=== PATIENT | female | born 1990 | race Two or more races ===

== ENCOUNTER 2017-05-29 15:50 | Emergency (ER) | payer BC ==
[~2017-05-29] VITALS: Ht 167.6 cm; Wt 74.1 kg
[~2017-05-29 15:50] MED LIST: Dilaudid PO; FLEXERIL10 MG PO; Feosol PO; Motrin PO; NAPROSYN500 MG PO; NOHOMEMEDS; NORCO 5/3251 TABLET PO; PRENATAL1 EACH PO; TORADOL10 MG PO; VALIUM5 MG PO
[2017-05-29 16:25] LABS: HEMATOCRIT 36.7 % (36.0-46.0); MCH 26.9 PG (29.0-34.0); MCHC 31.6 G/DL (30.0-36.0); MEAN PLAT.VOLUME 12.2 uM^3 (9.5-12.4); PLATELET COUNT 208 K/uL (156-360); RBC DIS.WIDTH-CV 13.8 % (11.8-14.6); RBC DIS.WIDTH-SD 42.8 % (39-53); RED BLOOD COUNT 4.32 M/uL (3.80-5.20)
[2017-05-29 16:33] LABS: D-DIMER ELISA < 150.00 ng/mLDDU (<230)
[2017-05-29 16:34] LABS: CHLORIDE 104 mEq/L (99-109); POTASSIUM 3.8 mEq/L (3.7-5.4); SODIUM 139 mEq/L (136-147)
[2017-05-29 16:36] LABS: GLUCOSE 96 mg/dL (70-99)
[2017-05-29 16:38] LABS: ANION GAP 11 MEQ/L (2-14)
[2017-05-29 16:40] LABS: GFR ESTIMATE (CALCULATED) > 59 mL/min/
[2017-05-29 16:41] LABS: UREA NITROGEN (BUN) 18 mg/dL (9-23)
[2017-05-29 16:46] LABS: TROP-I INTERPRETATION NEGATIVE; TROPONIN-I < 0.01 ng/mL (0.0-0.30)
[2017-05-29 16:48] LABS: QUANTITATIVE HCG < 4.0 MIU/ML
[2017-05-29] MEDS ORDERED: FLEXERIL10 MG PO (16:50)
[2017-05-29] MEDS ORDERED: MOTRIN800 MG PO (16:50)
[2017-05-29 17:07] VITALS: BP 113/84
== END 2017-05-29 17:12 | disposition home or self-care (01) ==
LOC: EME 15:50
PROVIDERS: Nurse Practitioner Family
DX: M62.838 Other muscle spasm (principal); M94.0 Chondrocostal junction syndrome [Tietze]; J45.909 Unspecified asthma, uncomplicated; F17.200 Nicotine dependence, unspecified, uncomplicated; Z88.5 Allergy status to narcotic agent
CPT/HCPCS: 71020; 80048; 84484; 84702; 85027; 85379; 93005; 99281; 99284

== ENCOUNTER 2017-09-12 14:46 | Emergency (ER) | payer BC ==
[~2017-09-12] VITALS: Ht 167.6 cm; Wt 73.5 kg
[~2017-09-12 14:46] MED LIST changes: +MOTRIN800 MG PO
[2017-09-12] MEDS ORDERED: ULTRAM50 MG PO (16:51)
[2017-09-12 17:02] VITALS: BP 106/76
== END 2017-09-12 17:02 | disposition home or self-care (01) ==
LOC: EME 14:46
DX: S43.402A Unspecified sprain of left shoulder joint, initial encounter (principal); X58.XXXA Exposure to other specified factors, initial encounter; Z88.5 Allergy status to narcotic agent
CPT/HCPCS: 73030; 99281; 99283